=== PATIENT | male | born 1950 | race Caucasian/White ===

== ENCOUNTER → 2017-09-21 | Outpatient (CLI) | payer MEDICARE ==
[2017-09-21 16:25] LABS: ALT 34 U/L (21-72); AST 20 U/L (17-59); Albumin 4.3 g/dL (3.5-5.0); Alkaline Phosphatase 91 U/L (38-126); Anion Gap 12 mmol/L; Blood Urea Nitrogen 27 mg/dL (9-20); Calcium 9.9 mg/dL (8.4-10.2); Carbon Dioxide 28 mmol/L (22-30); Chloride 106 mmol/L (98-107); Cholesterol 146 mg/dL (<200); Glucose 84 mg/dL (74-99); HDL Cholesterol 46 mg/dL (40-60); LDL Cholesterol,Calculated 66 mg/dL (0-99); Potassium 4.8 mmol/L (3.5-5.1); Sodium 146 mmol/L (137-145); Total Bilirubin 0.8 mg/dL (0.2-1.3); Total Protein 6.8 g/dL (6.3-8.2); Triglycerides 171 mg/dL (<150)
== END | disposition home or self-care (01) ==
LOC: LABWHC1 15:37
PROVIDERS: ATTEND Internal Medicine Clinical Cardiac Electrophysiology
DX: E78.5 Hyperlipidemia, unspecified (principal); I48.91 Unspecified atrial fibrillation
CPT/HCPCS: 36415; 80053; 80061; 84443

== ENCOUNTER → 2017-11-16 | Outpatient (CLI) | payer MEDICARE ==
[2017-11-16 16:04] LABS: HGB 14.3 gm/dL (13.0-17.5); MCH 28.3 pg (25.0-35.0); MCHC 32.6 g/dL (31.0-37.0); MCV 86.6 fL (80.0-100.0); Mean Platelet Volume 9.2; Platelet Count 175 k/uL (150-450); RBC 5.08 m/uL (4.30-5.90); RDW 13.2 % (11.5-15.5)
[2017-11-16 16:37] LABS: Anion Gap 8 mmol/L; Blood Urea Nitrogen 24 mg/dL (9-20); Carbon Dioxide 27 mmol/L (22-30); Chloride 107 mmol/L (98-107); Potassium 4.6 mmol/L (3.5-5.1); Sodium 142 mmol/L (137-145)
== END | disposition home or self-care (01) ==
LOC: LABPAT 15:20
PROVIDERS: ATTEND Internal Medicine Interventional Cardiology
DX: Z01.812 Encounter for preprocedural laboratory examination (principal); I42.8 Other cardiomyopathies; I42.2 Other hypertrophic cardiomyopathy
CPT/HCPCS: 36415; 80051; 82565; 84520; 85027

== ENCOUNTER 2017-11-26 09:50 | Day surgery (SDC) | payer MEDICARE ==
[2017-11-22 12:16] VITALS: BMI 30.6
[~2017-11-26 09:50] MED LIST: ALPRAZolam 0.25 MG TAB PO PRN; ALPRAZolam 0.5 MG TAB PO PRN; ASPIRIN 325 MG TAB PO ONE; ATORVASTATIN 80 MG TAB PO ONE; NITROGLYCERIN SL TABS 0.4 MG TAB SUBLINGUAL PRN; SODIUM CHLORIDE 0.9% 1,000 ML in EMPTY BAG 1 BAG IV ONE
[2017-11-26] MEDS ORDERED: VERAPAMIL 2.5 MG/ML 2 ML AMP ONE (10:25)
[2017-11-26] MEDS ORDERED: MIDAZOLAM 2 MG/2 ML VIAL ONE (10:25)
[2017-11-26 10:33] VITALS: TEMP 98
[2017-11-26 10:52] LABS: INR 1.1 (<1.2); Prothrombin Time 10.9 sec (9.0-12.0)
[2017-11-26] MEDS ORDERED: MIDAZOLAM 2 MG/2 ML VIAL IV ONE (11:26)
[2017-11-26] MEDS ORDERED: LIDOCAINE 2% INJ 20 MG/ML SQ ONE (11:28)
[2017-11-26] MEDS: VERAPAMIL SYRINGE (5 MG/10 ML) INTRAARTER ONE ×2 (11:30→11:39)
[2017-11-26] MEDS ORDERED: HEPARIN SODIUM 1,000 UN/ML (10ML VL) IV ONE (11:31)
[2017-11-26] MEDS ORDERED: IOPAMIDOL-370 125ML BTL INJ ONE (11:40)
[2017-11-26] MEDS ORDERED: RX INFO: IV CONTRAST WAS GIVEN 1 EACH MISC MISCELLANE PRN (11:49)
[2017-11-26] MEDS ORDERED: SODIUM CHLORIDE 0.9% 1,000 ML IV SCH (12:00)
--- NOTE | 2017-11-26 12:24 | CC ---
CARDIAC CATHETERIZATION REPORT DATE OF SERVICE: 11/26/2017. PERFORMING PHYSICIAN: Sami Thapa MD, shipboard intelligence analyst. PROCEDURE PERFORMED: Selective right and left coronary angiogram. INDICATIONS: This is a pleasant 67-year-old gentleman who sees Dr. Lyon in the office as an outpatient with known history of chronic atrial fibrillation as well as aortic valve disease, was found to have severe cardiomyopathy recently on echocardiogram. His previous echo showed normal ejection fraction. Because of that, severe underlying coronary artery disease was a concern and the patient was scheduled to undergo a heart catheterization. APPROACH: Right radial artery. COMPLICATIONS: None. LEVEL OF SEDATION: Moderate with sedation length of 18 minutes. PROCEDURE DESCRIPTION: After obtaining an informed consent, the patient was brought to cardiac labour market economist. The right radial artery was cannulated using micropuncture technique and a micropuncture wire passed easily. Then I placed a 6-Greenlandic sheath in the right radial artery. After that, I did selective right and left coronary angiogram using JR4 and JL3.5 catheters. The procedure was completed without any complications. I did give the patient 2 mg of verapamil IA and 8000 units of heparin IV prior to the procedure. SELECTIVE CORONARY ANGIOGRAM: 1. RCA: Large caliber vessel and it is a dominant vessel. It is angiographically normal. It distally bifurcates into PDA and PLV branches, both are angiographically normal. 2. LEFT MAIN: Left main is angiographically normal. It bifurcates into the circumflex, ramus intermedius, and left anterior descending artery. 3. LEFT CIRCUMFLEX: The left circumflex is a large caliber vessel. It is a nondominant vessel. The left circumflex is angiographically normal and in the midportion gives rise into a large OM branch which seems to be angiographically normal. 4. RAMUS INTERMEDIUS: Large caliber vessel, bifurcates into 2 subbranches and appeared to be angiographically normal. 5. LAD: The proximal LAD is normal. It divides into a large diagonal branch which seems to be angiographically normal. The mid LAD and distal LAD are angiographically normal. CONCLUSION: Normal coronary angiogram. POSTPROCEDURE MANAGEMENT: 1. Medical treatment only. 2. Follow up with the patient. MMODL / IJN: [id number] /
[2017-11-26 12:33] VITALS: RESP 18
--- NOTE | 2017-11-26 12:45 | LTR ---
November 26, 2017 Re: Alexys Gutierrez Dear Dr. Briones: Mr. Alexys Gutierrez underwent a heart catheterization and that revealed normal coronaries. I want to thank you for allowing me to participate in his care and the patient is going to follow up with Dr. Lyon in the office as an outpatient. Sincerely, MD DEBBI Smith / LOU: [id number] /
[2017-11-26 14:08] VITALS: BP 110/64; PULSE 63
== END 2017-11-26 16:30 | disposition home or self-care (01) ==
LOC: CATHCVL 09:50
PROVIDERS: ATTEND Internal Medicine Interventional Cardiology
DX: I11.9 Hypertensive heart disease without heart failure (principal); I43 Cardiomyopathy in diseases classified elsewhere; I49.5 Sick sinus syndrome; I35.1 Nonrheumatic aortic (valve) insufficiency; I71.9 Aortic aneurysm of unspecified site, without rupture; E78.00 Pure hypercholesterolemia, unspecified; I48.2 Chronic atrial fibrillation; Z82.49 Family history of ischemic heart disease and other diseases of the circulatory system; Z79.01 Long term (current) use of anticoagulants; Z79.899 Other long term (current) drug therapy
CPT/HCPCS: 93458; 85610; C1894; C1769 ×2; J2001; J2250; J1644; Q9967

== ENCOUNTER 2018-06-01 06:32 | Day surgery (SDC) | payer MEDICARE ==
[2018-06-01] MEDS ORDERED: SODIUM CHLORIDE 0.9% 500 ML 500 ML IV ONE (07:45)
[2018-06-01 08:13] VITALS: TEMP 98.1
[2018-06-01] MEDS ORDERED: fentaNYL (PF) 50 MCG/ML 2 ML AMP ONE (08:16)
[2018-06-01] MEDS: BENZOCAINE SPRAY 1 CAN TOPICAL ONE ×2 (08:25→08:35)
[2018-06-01] MEDS ORDERED: fentaNYL (PF) 50 MCG/ML 2 ML AMP IVP ONE (08:35)
[2018-06-01] MEDS ORDERED: MIDAZOLAM 2 MG/2 ML VIAL IVP ONE ×2 (08:35→08:37)
[2018-06-01] MEDS ORDERED: WARFARIN 1 MG TAB PO SCH (09:00)
[2018-06-01] MEDS ORDERED: CARVEDILOL 3.125 MG TAB PO SCH (09:00)
[2018-06-01] MEDS ORDERED: SPIRONOLACTONE 25 MG TAB PO SCH (09:00)
[2018-06-01] MEDS ORDERED: SODIUM CHLORIDE 0.9% 1,000 ML IV SCH (09:00)
[2018-06-01] MEDS ORDERED: SIMVASTATIN 80 MG PO SCH (09:00)
[2018-06-01] MEDS ORDERED: LISINOPRIL 40 MG PO SCH (09:00)
[2018-06-01 10:04] VITALS: PULSE 56
[2018-06-01 10:07] VITALS: BP 117/70; RESP 14
--- NOTE | 2018-06-01 10:19 | ECHOT ---
TRANSESOPHAGEAL ECHOCARDIOGRAM INDICATION: Evaluation of aortic valve. PROCEDURE: After explaining the procedure to the patient, its risks and the complications, his blood pressure, heart rate, O2 saturation was monitored. The throat was sprayed with Cetacaine. He received 3 mg intravenous Versed and 50 mcg intravenous fentanyl. The probe was introduced into the esophagus without difficulty. Images were obtained. Following that, the probe was removed. FINDINGS: Left atrial size is dilated. Spontaneous contrast was noted. Right atrial size is dilated. Left ventricular systolic function severely impaired with estimated ejection fraction 35% with global hypokinesis. The aortic valve is a bicuspid valve, calcified with aortic valve area by planimetry between 1.7 and 1.9 centimeter square. The mitral valve appears to be normal. Tricuspid valve appears to be normal. The ascending aorta is dilated measuring up to 4.6 cm. No pericardial effusion was noted. Spontaneous contrast was noted in the left atrium. Contrast bubble study revealed no shunting across the interatrial septum. Doppler pulse wave and color Doppler were obtained and revealed a moderate aortic regurgitation with mild and moderate tricuspid regurgitation. The peak gradient across the aortic valve was 34 mmHg with a mean of 25 mmHg. The estimated right ventricular systolic pressure was 50 mmHg consistent with moderate pulmonary hypertension. There was no shunting by color Doppler study. CONCLUSION: 1. Biatrial enlargement with spontaneous contrast and normal appearance left atrial appendage. 2. Severely impaired left ventricular systolic function with global hypokinesis. 3. Bicuspid aortic valve with moderate aortic stenosis and regurgitation. 4. Dilated ascending aorta. 5. No shunting by color Doppler study. 6. Moderate tricuspid regurgitation with moderate pulmonary hypertension. 7. Mild mitral regurgitation. MMODL / IJN: [id number] /
== END 2018-06-01 10:25 | disposition home or self-care (01) ==
LOC: CATHCVL 06:32
PROVIDERS: ATTEND Internal Medicine Interventional Cardiology
DX: Q23.1 Congenital insufficiency of aortic valve (principal); I08.3 Combined rheumatic disorders of mitral, aortic and tricuspid valves; I27.20 Pulmonary hypertension, unspecified; I10 Essential (primary) hypertension; I48.1 Persistent atrial fibrillation; Z79.01 Long term (current) use of anticoagulants; Z82.49 Family history of ischemic heart disease and other diseases of the circulatory system; Z79.899 Other long term (current) drug therapy; Z88.8 Allergy status to other drugs, medicaments and biological substances; E78.49 Other hyperlipidemia
CPT/HCPCS: 93312; 93320; 93325; J2250; J3010

== ENCOUNTER → 2018-06-20 | Outpatient (CLI) | payer MEDICARE | END | disposition home or self-care (01) | LOC: LABWHC1 08:29 | PROVIDERS: ATTEND Nurse Practitioner Adult Health | DX: I71.2 Thoracic aortic aneurysm, without rupture (principal); I10 Essential (primary) hypertension | CPT/HCPCS: 36415; 82565; 84520 ==

== ENCOUNTER → 2018-06-21 | Outpatient (CLI) | payer MEDICARE ==
--- NOTE | 2018-06-21 08:59 | CT ---
EXAMINATION TYPE: CT angio thor/abd pel aorta DATE OF EXAM: 06/21/2018 COMPARISON: None HISTORY: Thoracic aortic aneurysm, without rupture CT DLP: 633.6 mGycm. Automated Exposure Control for Dose Reduction was Utilized. CONTRAST: CTA scan of the thorax, abdomen and pelvis is performed without oral but with IV Contrast, patient in jected with 100 mL of Isovue 370. Three-D reconstructed images are created on independent workstation and reviewed. FINDINGS: VASCULAR: Central pulmonary arteries are well-opacified. Main pulmonary artery measures 2.3 cm in rojas meter axial image 22. Adjacent ascending aorta measures up to 4.6 cm in diameter on same image. There is no aneurysm extension into the descending aorta. There is normal three-vessel origin from aortic arch. 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 Patent SINCERE is identified. There are patent bilateral single renal arteries. There is mild calcified plaque in the right renal artery and distal abdominal aorta. Mild c alcified plaque is seen in bilateral common iliac arteries. There is patent internal/external iliac a rteries bilaterally. There is patent common femoral arteries branching into superficial and deep femo ral arteries. No significant stenosis is present. No additional aneurysm is seen. No linear hypodensi ty or dissection is noted. LUNGS: There is linear scarring in both bases. No suspicious nodules or masses are present bilateral ly. There is no pleural effusion or pneumothorax seen bilaterally. The tracheobronchial tree is michel nt. MEDIASTINUM: There are no greater than 1 cm hilar or mediastinal lymph nodes. No pericardial effusi on is seen. Heart size is mildly enlarged. There is mild to moderate atrial dilatation. There is mode rate calcification at level of aortic valve. There is mild left atrial dilatation. OTHER: No additional significant abnormality is seen. LIVER/GB: Several scattered hypodense lesions throughout the liver approximately 10 in number are too small to characterize favoring simple thin-walled cyst as there is a 2.3 cm thin-walled cyst noted l eft hepatic dome axial image 48. PANCREAS: No significant abnormality is seen. SPLEEN: No significant abnormality is seen. ADRENALS: No significant abnormality is seen. KIDNEYS: There is 6 mm dependent calculus and bladder axial image 99. BOWEL: Few diverticula in the left and sigmoid colon are present. No CT evidence for acute diverticul itis. No suspicious bowel dilatation. GENITAL ORGANS: Prostate gland is markedly enlarged in size consistent with BPH with some peripheral zone calcifications. LYMPH NODES: No greater than 1cm abdominal or pelvic lymph nodes are appreciated. OSSEOUS STRUCTURES: Mild multilevel anterior spurring in the thoracic spine is present. There is mode rate narrowing of bilateral hip joints. OTHER: No significant additional abnormality is seen. IMPRESSION: 1. Thoracic aortic aneurysm measuring up to 4.6 cm in diameter. There is background mild cardiomegal y. 2. 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 3. Markedly enlarged prostate gland system with BPH. There is 6 mm intraluminal bladder calculus note d.
== END | disposition home or self-care (01) ==
LOC: RADCTMAIN 06:41
PROVIDERS: ATTEND Internal Medicine Clinical Cardiac Electrophysiology
DX: I71.2 Thoracic aortic aneurysm, without rupture (principal); N40.0 Benign prostatic hyperplasia without lower urinary tract symptoms; I51.7 Cardiomegaly; N21.0 Calculus in bladder; Z88.8 Allergy status to other drugs, medicaments and biological substances
CPT/HCPCS: 71275; 74174; Q9967

== ENCOUNTER → 2018-08-25 | Outpatient (CLI) | payer MEDICARE ==
[2018-08-25 12:12] LABS: HCT 47.5 % (39.0-53.0); HGB 15.4 gm/dL (13.0-17.5); MCH 29.2 pg (25.0-35.0); MCHC 32.5 g/dL (31.0-37.0); MCV 89.8 fL (80.0-100.0); Mean Platelet Volume 9.1; Platelet Count 184 k/uL (150-450); RBC 5.28 m/uL (4.30-5.90); RDW 14.1 % (11.5-15.5); WBC 9.1 k/uL (3.8-10.6)
[2018-08-25 12:47] LABS: Anion Gap 4 mmol/L; Blood Urea Nitrogen 21 mg/dL (9-20); Carbon Dioxide 30 mmol/L (22-30); Chloride 106 mmol/L (98-107); Glucose 81 mg/dL (74-99); Potassium 4.7 mmol/L (3.5-5.1); Sodium 140 mmol/L (137-145)
== END ==
LOC: LABPAT 10:50
PROVIDERS: ATTEND Internal Medicine Clinical Cardiac Electrophysiology
DX: Z01.812 Encounter for preprocedural laboratory examination (principal); I42.0 Dilated cardiomyopathy; I49.5 Sick sinus syndrome
CPT/HCPCS: 36415; 80051; 82565; 82947; 84520; 85027

== ENCOUNTER 2018-08-29 06:31 | Day surgery (SDC) | payer MEDICARE ==
[~2018-08-29 06:31] MED LIST changes: -ALPRAZolam 0.25 MG TAB PO PRN; -ALPRAZolam 0.5 MG TAB PO PRN; -ASPIRIN 325 MG TAB PO ONE; -ATORVASTATIN 80 MG TAB PO ONE; +LACTATED RINGERS 1,000 ML IV SCH; -NITROGLYCERIN SL TABS 0.4 MG TAB SUBLINGUAL PRN; +SODIUM CHLORIDE 0.9% 1,000 ML IV SCH; -SODIUM CHLORIDE 0.9% 1,000 ML in EMPTY BAG 1 BAG IV ONE; +ceFAZolin 1,000 MG in SODIUM CHLORIDE 0.9% IRRIGATIO 250 ML IRRIGATION ONE; +ceFAZolin IN SWFI 2 GM/20 ML SYRINGE IVP ONE
[2018-08-29] MEDS ORDERED: fentaNYL (PF) 50 MCG/ML 2 ML AMP ONE (07:44)
[2018-08-29] MEDS ORDERED: PROPOFOL 10 MG/ML 20 ML VIAL IV ONE (07:44)
[2018-08-29] MEDS ORDERED: MIDAZOLAM 2 MG/2 ML VIAL ONE (07:44)
[2018-08-29] MEDS ORDERED: IOPAMIDOL-250 50ML BTL IV ONE (08:02)
[2018-08-29] MEDS ORDERED: LIDOCAINE 1% INJ 10MG/ML (20 ML MDV) ONE ×2 (08:12)
[2018-08-29 08:27] LABS: INR 2.9 (<1.2)
[2018-08-29] MEDS ORDERED: LIDOCAINE 1% INJ 10MG/ML (20 ML MDV) SQ ONE (09:30)
[2018-08-29] MEDS ORDERED: SODIUM CHLORIDE 0.9% 500 ML 500 ML IV ONE (10:41)
[2018-08-29] MEDS ORDERED: ACETAMINOPHEN IV (For NPO) 1,000 MG in EMPTY BAG 1 BAG IVPB ONE ×2 (12:00→20:00)
[2018-08-29 12:20] VITALS: BMI 30.9
[2018-08-29] MEDS: ACETAMINOPHEN TAB 325 MG TAB PO PRN ×2 (12:35→18:04)
[2018-08-29] MEDS: CARVEDILOL 3.125 MG TAB PO SCH ×2 (12:35→17:16)
[2018-08-29] MEDS: ceFAZolin IN SWFI 2 GM/20 ML SYRINGE IVP SCH ×2 (14:46→20:09)
[2018-08-29] MEDS: HYDROcodone/APAP 5-325MG 1 EACH TAB PO PRN (19:10)
[2018-08-29] MEDS ORDERED: HYDROmorphone 0.5 MG/0.5 ML SYRINGE IVP PRN (19:14)
[2018-08-29] MEDS ORDERED: TEMAZEPAM 15 MG CAP PO PRN (19:15)
[2018-08-29] MEDS ORDERED: ATORVASTATIN 40 MG TAB PO SCH (21:00)
[2018-08-29] MEDS ORDERED: SPIRONOLACTONE 25 MG TAB PO SCH (21:00)
--- NOTE | 2018-08-29 22:59 | PCN ---
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 Despite being on appropriate medical treatment, his rates of very poorly controlled during the daytime. At rest and at night, his heart rates are extremely slow. He was brought for an ICD implant for chronic nonischemic cardiomyopathy, ejection fraction less than 35% with heart failure, but in view of his atrial fibrillation with RVR and poor rate control despite appropriate medical treatment for heart failure and atrial fibrillation, the biventricular pacing for/physiologic septal pacing was also considered prior to AV node modification, to avoid RV pacing post AV node ablation. Patient was brought to the EP lab in a fasting state. Written informed consent was obtained prior to the procedure. The left shoulder area was prepped and draped as per protocol. 1% lidocaine was used for local anesthesia. A IV cm incision was made parallel to the deltopectoral groove, about 1.5 cm medial to it. The incision was carried down to the level of the pectoralis muscle. A subfascial pocket was made. Hemostasis was assured. The left axillary vein was accessed at 2 separate points under fluoroscopy and via appropriately-sized introducer sheaths, 2 leads were positioned. [employer] ICD lead was model number [id number] 20Q, 58 cm in length and serial number [id number]. This was positioned in the RV apex. Current protocol was followed. R- waves 4.8 mV. Pacing impedance 640 ohms, pacing threshold 0.45 V at 0.5 milliseconds 10 V test negative. The 2nd lead implanted was a [employer] model ##[id number], 69 cm in length. Mapping of the His bundle was performed and this was screwed in the area of the His bundle with the HV interval of 146 milliseconds. After multiple screw ins, excellent threshold for nonselective His capture was obtained in the R-waves were 3.3 mV, pacing impedance 481 ohms, nonselective capture was noted down to 2.4 V at 1 millisecond and then subsequently ventricular capture. Both leads were secured to the underlying pectoralis fascia using 2 nonabsorbable sutures. Pocket was irrigated with antibiotic solution. Leads were connected to the generator. The generator was explanted. [employer] model number [id number] serial #[id number]. Atrial fort was plugged. The new generator was in the subfascial pocket. A [employer] model number [id number], 40 Q serial #[id number]. The atrial port was implanted. The generator was placed in the subfascial pocket. The wound was closed in 3 layers and dressed per protocol. The device was then programmed to 100 mid-LAD programming for primary prevention of sudden cardiac in the pacing in physiologic septal pacing at 60 ppm up to 130 ppm was performed with rate responsiveness. The patient tolerated the procedure well without any acute complications. PLAN: In 6 weeks the AV node modification will be performed if the leads remain stable. DEBBI / MARLEYN: [id number] /
[2018-08-30] MEDS: ceFAZolin IN SWFI 2 GM/20 ML SYRINGE IVP SCH ×2 (04:22→09:18)
[2018-08-30] MEDS: HYDROcodone/APAP 5-325MG 1 EACH TAB PO PRN (04:51)
--- NOTE | 2018-08-30 07:16 | XR ---
EXAMINATION TYPE: XR chest 2V DATE OF EXAM: 08/30/2018 COMPARISON: None HISTORY: 68-year-old male leak placement check TECHNIQUE: PA and lateral views FINDINGS: Left anterior chest wall AICD generator with right atrial and right ventricular leads. Heart borderli ne enlarged. Diffuse interstitial prominence. No consolidation or pleural effusion. IMPRESSION: Left anterior chest wall pacemaker generator with right atrial and right ventricular leads. Borderlin e heart size with interstitial prominence, possibly chronic in this patient. Correlate to exclude mil d pulmonary vascular congestion.
[2018-08-30 07:54] VITALS: RESP 16
[2018-08-30] MEDS ORDERED: LISINOPRIL 20 MG TAB PO SCH (09:00)
[2018-08-30] MEDS: CARVEDILOL 3.125 MG TAB PO SCH (09:18)
--- NOTE | 2018-08-30 12:07 | P.DS ---
Providers Attending physician: Germain Lyon Primary care physician: [facility] Hospital Course: Patient is doing well. He does complain of discomfort in the pectoral area near the ICD site implant. Minimal bruising no hematoma No actual chest discomfort no dizziness lightheadedness no palpitations On examination heart sounds are normal irregular Breath sounds are clear Pacemaker site is healing well Impression Nonischemic cardiomyopathy Aortic valve disease Dilated aortic root Atrial fibrillation with tachybradycardia syndrome, failure of drug therapy to control heart rates adequately Status post biventricular ICD implant with physiologic septal pacing Plan Continue and granulation, continue cardio myopathy in heart failure medications 6 weeks later we'll proceed with AV junction modification Aortic valve and aortic root on observation 6 monthly Plan - Discharge Summary Discharge Rx Participant: No New Discharge Prescriptions: Continue Spironolactone [Aldactone] 25 mg PO HS Carvedilol [Coreg] 3.125 mg PO TID Simvastatin [Zocor] 80 mg PO HS Lisinopril [Zestril] 40 mg PO DAILY Warfarin [Coumadin] 7.5 mg PO HS Discharge Medication List Carvedilol [Coreg] 3.125 mg PO TID 11/22/17 [History] Lisinopril [Zestril] 40 mg PO DAILY 11/22/17 [History] Simvastatin [Zocor] 80 mg PO HS 11/22/17 [History] Spironolactone [Aldactone] 25 mg PO HS 11/22/17 [History] Warfarin [Coumadin] 7.5 mg PO HS 05/31/18 [History] Follow up Appointment(s)/Referral(s): Germain Lyon MD [STAFF PHYSICIAN] - 09/08/18 10:00 am (Device clinic within week Follow-up with Dr. Lyon in 3 months) Patient Instructions/Handouts: Pacemaker (GEN) Activity/Diet/Wound Care/Special Instructions: PATIENT EDUCATION MATERIAL Instructions following a heart rhythm device implant. 1. Keep dressing DRY for 5 DAYS. You may cover the area with Saran or Cling Wrap, prior to a shower. 2. The dressing will be removed in the Device Clinic at [facility]. Absorbable sutures were used to close the wound. 3. Avoid raising the left arm above the shoulder level. 4 week restriction 4. Avoid arm movements, like backscratching, rubbing the head, or pulling on a cord. 4 weeks restriction 5. Gentle range of motion movements of the shoulder, closest to the incision should be performed to avoid a frozen shoulder. (Pendulum exercises of the shoulder) 6. The opposite arm may be used freely. 7. Avoid driving for 7 days. 8. Avoid activities such as golfing, swimming, weed whacking, lifting more than 10 pounds weight, bowling, gymnastics and weight training/lifting. (6 weeks restriction) 9. Activities such as wood chopping with an axe, pull-ups in the gymnasium, power lifting, arc-welding, being close to home induction cooktops will always be a problem. 10. Arm sling is only a reminder not to raise the arm above the head. You do not need to keep the arm completely immobilized. Your free to move the arm and use it and for normal activities. In case of any problems, please call [facility], [place], @ [phone], Attention: Device Clinic Device clinic follow-up in 5 days Follow-up with primary assistant store manager trainee in 3 months Discharge Disposition: HOME SELF-CARE
[2018-08-30] MEDS: ACETAMINOPHEN TAB 325 MG TAB PO PRN (12:31)
[2018-08-30 12:38] VITALS: BP 125/85; PULSE 75; TEMP 98.1
== END 2018-08-30 13:03 | disposition home or self-care (01) ==
LOC: CATHEP 06:31 → 1SOBS 11:13 → CATHEP 08-30 13:03
PROVIDERS: ATTEND Internal Medicine Clinical Cardiac Electrophysiology
DX: I42.0 Dilated cardiomyopathy (principal); I49.5 Sick sinus syndrome; I11.0 Hypertensive heart disease with heart failure; I50.9 Heart failure, unspecified; E78.5 Hyperlipidemia, unspecified; I48.1 Persistent atrial fibrillation; Q23.1 Congenital insufficiency of aortic valve; Z82.49 Family history of ischemic heart disease and other diseases of the circulatory system; I71.2 Thoracic aortic aneurysm, without rupture; Z79.01 Long term (current) use of anticoagulants; Z79.899 Other long term (current) drug therapy; Z88.8 Allergy status to other drugs, medicaments and biological substances
CPT/HCPCS: 33225; 33249; 85610; 71046; C1769 ×3; C1892; C1898; C1882; C1777; J2250; J0690 ×3; J2001; J3010; J2704; Q9966

== ENCOUNTER 2018-12-05 11:39 | Day surgery (SDC) | payer MEDICARE ==
[~2018-12-05 11:39] MED LIST changes: -SODIUM CHLORIDE 0.9% 1,000 ML IV SCH; -ceFAZolin 1,000 MG in SODIUM CHLORIDE 0.9% IRRIGATIO 250 ML IRRIGATION ONE; -ceFAZolin IN SWFI 2 GM/20 ML SYRINGE IVP ONE
[2018-12-05] MEDS: SODIUM CHLORIDE 0.9% 1,000 ML IV SCH (12:35)
[2018-12-05 12:39] LABS: Basophils # (A) 0.1 k/uL (0-0.2); Basophils % (A) 1 %; Eosinophils # (A) 0.2 k/uL (0-0.7); Eosinophils % (A) 4 %; HCT 43.7 % (39.0-53.0); HGB 14.6 gm/dL (13.0-17.5); Lymphocytes # (A) 1.6 k/uL (1.0-4.8); Lymphocytes % (A) 25 %; MCH 29.5 pg (25.0-35.0); MCHC 33.4 g/dL (31.0-37.0); MCV 88.2 fL (80.0-100.0); Mean Platelet Volume 8.6; Monocytes # (A) 0.5 k/uL (0-1.0); Monocytes % (A) 7 %; Neutrophils # (A) 4.1 k/uL (1.3-7.7); Neutrophils % (A) 62 %; Platelet Count 164 k/uL (150-450); RBC 4.96 m/uL (4.30-5.90); RDW 13.2 % (11.5-15.5); WBC 6.5 k/uL (3.8-10.6)
[2018-12-05 12:43] LABS: INR 1.3 (<1.2)
[2018-12-05 12:46] LABS: African American GFR (CKD) >90 (>60 ml/min/1.73 sqM); Anion Gap 6 mmol/L; Blood Urea Nitrogen 27 mg/dL (9-20); Calcium 9.6 mg/dL (8.4-10.2); Carbon Dioxide 25 mmol/L (22-30); Chloride 110 mmol/L (98-107); Glucose 92 mg/dL (74-99); Non-African American GFR(CKD) >90 (>60 ml/min/1.73 sqM); Sodium 141 mmol/L (137-145)
[2018-12-05 12:48] LABS: Potassium 5.4 mmol/L (3.5-5.1)
[2018-12-05] MEDS ORDERED: ePHEDrine SULFATE/0.9% NACL/PF 50 MG/5 ML SYRINGE IV ONE (14:01)
[2018-12-05] MEDS ORDERED: ATROPINE SULFATE 0.4 MG/ML 1 ML VIAL ONE (14:01)
[2018-12-05] MEDS ORDERED: PROPOFOL 10 MG/ML 20 ML VIAL IV ONE (14:01)
[2018-12-05] MEDS ORDERED: LIDOCAINE 1% INJ 10MG/ML (20 ML MDV) ONE ×2 (14:01→14:03)
[2018-12-05] MEDS ORDERED: MIDAZOLAM 2 MG/2 ML VIAL ONE (14:01)
[2018-12-05] MEDS ORDERED: fentaNYL (PF) 50 MCG/ML 2 ML AMP ONE (14:01)
[2018-12-05] MEDS ORDERED: LIDOCAINE 1% INJ 10MG/ML (20 ML MDV) SQ ONE (14:39)
[2018-12-05] MEDS ORDERED: HYDROcodone/APAP 5-325MG 1 EACH TAB PO PRN (15:34)
[2018-12-05] MEDS ORDERED: ACETAMINOPHEN IV (For NPO) 1,000 MG in EMPTY BAG 1 BAG IVPB ONE (15:34)
[2018-12-05] MEDS ORDERED: ACETAMINOPHEN TAB 325 MG TAB PO PRN (15:34)
--- NOTE | 2018-12-05 15:50 | P.HPCAR ---
History of Present Illness This is Dr. Lyon dictating a consult on this patient The patient was interviewed and examined by me IMPRESSION / ASSESSMENT: A. fib with RVR with inappropriate ICD shocks Status post biventricular ICD with physiologic septal pacing Congestive heart failure class II Hypertension Permanent Atrial fibrillation with a right bundle branch block pattern on ECG Nonischemic current myopathy serial dysfunction PLAN: AV node ablation/modification today HPI 68-year-old male patient with a history of atrial fibrillation with RVR with cardio myopathy. He has received inappropriate ICD shocks for A. fib with RVR He is on anticoagulation with Coumadin This is nonischemic cardio myopathy normal coronary arteries He is a dilated aortic root, aortic aneurysm He is status post biventricular ICD placement with physiologic septal pacing with His bundle pacing He denies any fever chills or rigors or expectoration no skin lesions or infections he is orthopnea PND and is able to lie flat comfortably he has no chest discomfort ROS: No fever chills or rigors, no cough, phlegm or expectoration, no nausea, vomiting or diarrhea, no hematuria, dysuria, no musculoskeletal complaints, no strokes or seizures, no skin lesions. EXAMINATION: Afebrile 97.9F pulse rate in the 70s blood pressure 139/84 mmHg Breath sounds are clear no rhonchi no crackles Heart sounds are irregular and rapid Abdomen soft nontender Extended is warm no edema No JVD Orthopnea REVIEW OF LABS, ECG & MEDICAL DATA hemoglobin 14.6 INR 1.3 potassium 5.4 BUN/creatinine normal He is a seizures medical by ventricle ICD with His bundle pacing Physical Exam Vitals: Vital Signs Temp Pulse Resp BP Pulse Ox 12/05/18 12:31 97.9 F 70 18 139/84 98 Intake and Output 12/05/18 12/05/18 12/05/18 06:59 14:59 22:59 Intake Total 20 Balance 20 Intake: IV 20 Past Medical History Past Medical History: Eye Disorder, Prostate Disorder Additional Past Medical History / Comment(s): See Dr Lyon's H&P. Lazy right eye. History of Any Multi-Drug Resistant Organisms: None Reported Past Surgical History: AICD, Heart Catheterization, Orthopedic Surgery Additional Past Surgical History / Comment(s): Broken right ankle surgery, WRIST RT X2 Past Anesthesia/Blood Transfusion Reactions: No Reported Reaction Type of Cardiac Device: AICD Device Placement Date:: 08/29/18 Smoking Status: Never smoker - Past Family History Brother(s) Family Medical History: Cancer Mother Brother(s) Family Medical History: Cancer Additional Family Medical History / Comment(s): Esophageal cancer. Mother Family Medical History: CVA/TIA Physical Examination Vital Signs Temp Pulse Resp BP Pulse Ox 12/05/18 12:31 97.9 F 70 18 139/84 98 Intake and Output 12/05/18 12/05/18 12/05/18 06:59 14:59 22:59 Intake Total 20 Balance 20 Intake: IV 20 Results 12/05/18 12:30 12/05/18 12:30 Coagulation 12/05/18 Range/Units 12:30 PT 13.0 H (9.0-12.0) sec CBC 12/05/18 Range/Units 12:30 WBC 6.5 (3.8-10.6) k/uL RBC 4.96 (4.30-5.90) m/uL Hgb 14.6 (13.0-17.5) gm/dL Hct 43.7 (39.0-53.0) % Plt Count 164 (150-450) k/uL Comprehensive Metabolic Panel 12/05/18 Range/Units 12:30 Sodium 141 (137-145) mmol/L Potassium 5.4 H (3.5-5.1) mmol/L Chloride 110 H (98-107) mmol/L Carbon Dioxide 25 (22-30) mmol/L BUN 27 H (9-20) mg/dL Creatinine 0.73 (0.66-1.25) mg/dL Glucose 92 (74-99) mg/dL Calcium 9.6 (8.4-10.2) mg/dL Current Medications Generic Name Dose Route Start Last Admin Trade Name Freq PRN Reason Stop Dose Admin Acetaminophen 650 mg 12/05/18 15:34 Tylenol Tab PO Q6HR PRN Mild Pain Hydrocodone Bitart/Acetaminophen 1 each 12/05/18 15:34 Cisco 5-325 PO Q4HR PRN Moderate Pain Atorvastatin Calcium 40 mg 12/05/18 21:00 Lipitor PO HS JIGAR Carvedilol 12.5 mg 12/05/18 17:30 Coreg PO BID-W/MEALS JIGAR Sodium Chloride 1,000 mls @ 20 mls/hr 12/05/18 07:23 12/05/18 12:35 Saline 0.9% IV 20 mls .Q24H JIGAR Administration Lisinopril 40 mg 12/06/18 09:00 Zestril PO QAM COUNT INCLUDES THE [facility] Sodium Chloride 12 ml 12/05/18 21:00 Saline Flush IV Q12HR COUNT INCLUDES THE [facility] Spironolactone 25 mg 12/05/18 21:00 Aldactone PO HS COUNT INCLUDES THE [facility] Warfarin Sodium 7.5 mg 12/05/18 18:00 Coumadin PO DAILY@1800 COUNT INCLUDES THE [facility] Intake and Output 12/05/18 12/05/18 12/05/18 06:59 14:59 22:59 Intake Total 20 Balance 20 Intake: IV 20 12/05/18 12:30 12/05/18 12:30
--- NOTE | 2018-12-05 15:52 | P.PRLE ---
RE: Alexys Gutierrez Dear Dr. Anali Espinosa underwent an ejection modification following biventricular ICD implantation. He is atrial fibrillation with RVR with inappropriate ICD shocks secondary to A. fib He underwent AV node modification successfully and hopefully he has no further issues with A. fib with RVR His medications including anticoagulation and been unchanged Thank you for entrusting me with the care of the patient Warm regards Sincerely Germain Lyon
--- NOTE | 2018-12-05 15:56 | P.PCN ---
Preoperative Diagnosis: Diagnosis Atrial fibrillation with RVR with inappropriate ICD shocks Current myopathy status post biventricular ICD Physiologic septal pacing Congestive heart failure class II Hypertension Underlying right bundle branch block pattern Procedure: Device interrogation with reprogramming prior to the procedure AV Node Ablation/modification. Device interrogation with reprogramming postprocedure Patient was brought to the EP lab in a fasting state. Written, informed consent was obtained prior to the procedure. Access was obtained, sheath placed in right femoral vein. 1. Preprocedure device interrogation and reprogramming Device interrogation with reprogramming performed. Rate responsiveness was turned off and the pacing rate was reprogrammed to a backup mode prior to ablation. Tachycardia detections turned off. Lead impedance is documented, sensing and pacing thresholds performed prior to the procedure Backup pacing, VVI 40 bpm 3. AV node ablation A Mapping/Ablation catheter was placed and right-sided AV node radiofrequency ablation/modification was performed. Complete heart block was achieved with occasional junctional escape rhythm above 40 bpm The patient was observed for about 20 minutes. His LV threshold/His bundle threshold was 0.75 V at 1 ms Once the rate was increased to 90 beats a minute his threshold increase to 3.5 V at 1 ms Impedances are stable 4. Device programming postprocedure Post ablation, device reprogramming was performed. Base Pacing rate was programmed to 90 bpm. Patient's device was reprogrammed and the interrogated. RF mode turned on Vascular sheaths were removed at the end of the procedure, hemostasis was assured, the patient was then transferred to recovery room/telemetry in stable condition. RV pacing threshold 0.7. 0.5 ms pacing impedance 440 ohms Conclusions: Successful ablation of the AV node. Plan: Pacing at 90 bpm for at least 3 weeks., His bundle pacing Basic programmed to His bundle pacing 5 V at 1 ms Telemetry monitoring for 24 hours. Continue anticoagulation. Patient tolerated the procedure well without any acute complications
[2018-12-05 16:43] VITALS: BMI 31.4
[2018-12-05] MEDS: CARVEDILOL 12.5 MG TAB PO SCH (17:51)
[2018-12-05] MEDS ORDERED: WARFARIN 7.5 MG TAB PO SCH (18:00)
[2018-12-05] MEDS ORDERED: ATORVASTATIN 40 MG TAB PO SCH (21:00)
[2018-12-05] MEDS ORDERED: SPIRONOLACTONE 25 MG TAB PO SCH (21:00)
[2018-12-06 07:03] LABS: INR 1.1 (<1.2); Prothrombin Time 11.9 sec (9.0-12.0)
[2018-12-06] MEDS: CARVEDILOL 12.5 MG TAB PO SCH (07:35)
[2018-12-06] MEDS: SODIUM CHLORIDE 0.9% 1,000 ML IV SCH (07:40)
[2018-12-06] MEDS ORDERED: LISINOPRIL 20 MG TAB PO SCH (09:00)
[2018-12-06 12:05] VITALS: BP 150/108; PULSE 101; RESP 18; TEMP 97.7
--- NOTE | 2018-12-06 12:54 | P.DS ---
Providers Attending physician: Germain Lyon Primary care physician: [facility] Course: Patient is a 68-year-old male with a past medical history of persistent atrial fibrillation, hypertension, nonischemic cardiomyopathy status post biventricular ICD, class II CHF who presented for an AV node ablation. Patient has atrial fibrillation with RVR and has been receiving inappropriate ICD shocks due to the the rapid ventricular rates, so he was scheduled for an AV node ablation avoid inappropriate ICD shocks. Yesterday he underwent successful AV node ablation/modification. His device was reprogrammed to VVIR 90-130 bpm. He has done well post procedure. He does have some postoperative urinary retention requiring straight Catheterization but he was able to void on his own this morning. Patient seen and examined sitting up in his chair. Dates he feels well. Denies any chest pain, palpitations, shortness of breath, orthopnea. He has been able to get up and walk around without any dizziness, lightheadedness or syncope. Device interrogation revealed normally functioning biventricular ICD, thresholds within normal limits WBC 6.5, hemoglobin 14.6, platelets 164, potassium 5.4, BUN 27, creatinine 0.73, PT 11.9, INR 1.1 Temperature 98.3F, pulse 90, respirations 14, blood pressure 123/82, oxygen saturation 97% on room air Patient seen and examined sitting up in his chair, no acute distress Lungs clear to auscultation bilaterally Heart is regular normal S1 and S2, no murmurs appreciated Groin minimally tender to palpation, no hematomas palpated Impression Persistent atrial fibrillation with inappropriate ICD shocks, status post AV node ablation, doing well postprocedure Nonischemic cardiomyopathy status post biventricular ICD placement with physiologic septal pacing Class II systolic CHF, stable Hypertension, blood pressure stable Plan Continue pacing at 90 bpm for 2-3 weeks, follow-up in the device clinic to reduce rate to 60 bpm Continue current medication regimen including anticoagulation with warfarin Continue current dose of warfarin, recheck INR in one week Low potassium diet follow up with Dr. Lyon/Milla Vu/Kristin Robb 8 weeks Plan - Discharge Summary Discharge Rx Participant: No New Discharge Prescriptions: Continue Spironolactone [Aldactone] 25 mg PO HS Carvedilol [Coreg] 12.5 mg PO BID Simvastatin [Zocor] 80 mg PO HS Lisinopril [Zestril] 40 mg PO QAM Warfarin [Coumadin] 7.5 mg PO HS Discharge Medication List Carvedilol [Coreg] 12.5 mg PO BID 11/22/17 [History] Lisinopril [Zestril] 40 mg PO QAM 11/22/17 [History] Simvastatin [Zocor] 80 mg PO HS 11/22/17 [History] Spironolactone [Aldactone] 25 mg PO HS 11/22/17 [History] Warfarin [Coumadin] 7.5 mg PO HS 05/31/18 [History] Follow up Appointment(s)/Referral(s): Germain Lyon MD [STAFF PHYSICIAN] - 2 Weeks (groin check-- December 12, 2018 at 11:15 am Device clinic follow-up in 2 weeks-- December 20, 2018 at 1:30 pm Follow-up with Dr. Lyon/Milla Vu/Kristin Robb in 8 weeks ) Activity/Diet/Wound Care/Special Instructions: Post EP study - Ablation instructions 1. Keep access sites dry for 2 days. 2. No heavy lifting or straining for 2 days. 3. Avoid bending the hips repeatedly for 2 days. 4. You may go up and down stairs slowly Call if the following is noted 1. Bleeding, increasing swelling or pain at the access sites. 2. Increasing chest discomfort, especially upon taking a deep breath. 3. Increasing shortness of breath, at rest or with exertion. 4. Undue cough / phlegm 5. Difficulty or pain while swallowing. 6. Pain or change in color in the extremities. 7. Fever, chills, rigors. 8. Increasing headache or neurologic symptoms. 9. Dizziness, fainting, palpitations
[2018-12-06] MEDS ORDERED: TAMSULOSIN 0.4 MG CAP.ER.24H PO STA (13:07)
== END 2018-12-06 16:04 | disposition home or self-care (01) ==
LOC: CATHEP 11:39 → 1SOBS 15:39 → CATHEP 12-06 16:04
PROVIDERS: ATTEND Internal Medicine Clinical Cardiac Electrophysiology
DX: I48.2 Chronic atrial fibrillation (principal); I11.0 Hypertensive heart disease with heart failure; I50.9 Heart failure, unspecified; I45.10 Unspecified right bundle-branch block; Z95.810 Presence of automatic (implantable) cardiac defibrillator; I42.8 Other cardiomyopathies; E78.5 Hyperlipidemia, unspecified; H53.001 Unspecified amblyopia, right eye; N42.9 Disorder of prostate, unspecified; Z80.0 Family history of malignant neoplasm of digestive organs; Z82.3 Family history of stroke; Z79.01 Long term (current) use of anticoagulants; Z79.899 Other long term (current) drug therapy
CPT/HCPCS: 93650; 80048; 85025; 85610 ×2; C1894; C1769 ×2; C1732; C1893; J2250; J0461; J2001; J3010; J2704

== ENCOUNTER 2018-12-06 22:07 | Emergency (ER) | payer MEDICARE ==
[2018-12-06 22:12] VITALS: PULSE 89; RESP 18
[2018-12-06 23:34] LABS: Appearance,Urine Clear (Clear); Bilirubin,Urine Negative (Negative); Blood,Urine Moderate (Negative); Color,Urine Light Yellow; Glucose,Urine (UA) Negative (Negative); Ketones,Urine Negative (Negative); Leukocyte Esterase,Urine Negative (Negative); Mucus,Urine Rare /hpf; Nitrite,Urine Negative (Negative); Protein,Urine Negative (Negative); RBC,Urine 24 /hpf (0-5); Specific Gravity,Urine 1.012 (1.001-1.035); Squamous Epithelial Cell,Urine <1 /hpf (0-4); Urobilinogen,Urine <2.0 mg/dL (<2.0); WBC,Urine 2 /hpf (0-5)
--- NOTE | 2018-12-06 23:38 | ED ---
General Adult HPI - General Chief complaint: Urogenital Stated complaint: unable to urinate Time Seen by Provider: 12/06/18 22:19 Source: patient, family Mode of arrival: ambulatory Limitations: no limitations - History of Present Illness Initial comments: 68-year-old male patient presents to the emergency department today for evaluation of urinary retention. Patient states he underwent cardiac ablation yesterday morning. Patient states he was kept for observation overnight. States he has not urinated since. States to did have intermittent straight catheterization twice while here in the hospital. He was started on Flomax. Patient states he was discharged just after noon and was unable to urinate on his own. Patient states he returned when he began to develop pressure and fullness in the suprapubic region. He denies any fever or chills. States he does have an enlarged prostate. Denies any history of urinary retention. He is not having any chest pain or shortness of breath. Patient denies any recent rash, nausea, vomiting, diarrhea, constipation, back pain, numbness, tingling, dizziness, weakness, headache, visual changes, or any other complaints. - Related Data Home Medications Medication Instructions Recorded Confirmed Carvedilol [Coreg] 12.5 mg PO BID 11/22/17 12/05/18 Lisinopril [Zestril] 40 mg PO QAM 11/22/17 12/05/18 Simvastatin [Zocor] 80 mg PO HS 11/22/17 12/05/18 Spironolactone [Aldactone] 25 mg PO HS 11/22/17 12/05/18 Warfarin [Coumadin] 7.5 mg PO HS 05/31/18 12/05/18 Allergies Allergy/AdvReac Type Severity Reaction Status Date / Time No Known Allergies Allergy Verified 12/06/18 22:11 Review of Systems ROS Statement: Those systems with pertinent positive or pertinent negative responses have been documented in the HPI. ROS Other: All systems not noted in ROS Statement are negative. Past Medical History Past Medical History: Eye Disorder, Prostate Disorder Additional Past Medical History / Comment(s): See Dr Lyon's H&P. Lazy right eye.. afib, bicupsid aortic valve, aortic anursym wathcing History of Any Multi-Drug Resistant Organisms: None Reported Past Surgical History: AICD, Heart Catheterization, Orthopedic Surgery, Pacemaker Additional Past Surgical History / Comment(s): Broken right ankle surgery,. ablasion. defibilator/pacemaker Past Anesthesia/Blood Transfusion Reactions: No Reported Reaction Type of Cardiac Device: AICD Device Placement Date:: 08/29/18 Past Psychological History: No Psychological Hx Reported Smoking Status: Never smoker Past Alcohol Use History: Rare Past Drug Use History: None Reported - Past Family History Brother(s) Family Medical History: Cancer Mother Brother(s) Family Medical History: Cancer Additional Family Medical History / Comment(s): Esophageal cancer. Mother Family Medical History: AFIB, CVA/TIA Father Additional Family Medical History / Comment(s): CABG General Exam Limitations: no limitations General appearance: alert, in no apparent distress, other (This is a well- developed, well-nourished adult male patient in no acute distress. Vital signs upon presentation are temperature 97.8F, pulse 89, respirations 18, blood pressure 170/96, pulse ox 97% on room air) Eye exam: Present: normal appearance, PERRL, EOMI. Absent: scleral icterus, conjunctival injection, periorbital swelling ENT exam: Present: normal exam, normal oropharynx, mucous membranes moist Respiratory exam: Present: normal lung sounds bilaterally. Absent: respiratory distress, wheezes, rales, rhonchi, stridor Cardiovascular Exam: Present: regular rate, normal rhythm, normal heart sounds. Absent: systolic murmur, diastolic murmur, rubs, gallop, clicks GI/Abdominal exam: Present: soft, tenderness (Suprapubic discomfort), normal bowel sounds. Absent: distended, guarding, rebound, rigid Neurological exam: Present: alert, oriented X3, CN II-XII intact Psychiatric exam: Present: normal affect, normal mood Skin exam: Present: warm, dry, intact, normal color. Absent: rash Course Vital Signs 12/06/18 12/07/18 22:08 00:04 Temperature 97.8 F 98 F Pulse Rate 89 Respiratory 18 18 Rate Blood Pressure 170/96 104/73 O2 Sat by Pulse 97 98 Oximetry Medical Decision Making - Medical Decision Making 68 year-old male patient presented to the emergency department today for evaluation of urinary retention after having a cardiac ablation with anesthesia. Physical examination did reveal some mild suprapubic tenderness. Pierce catheter was inserted, patient had 600-700 mL output. Urinalysis showed red blood cells no evidence for infection. Pierce catheter be left inserted. He is instructed to follow-up with urologist for further evaluation as soon as possible. Return parameters were discussed in detail. He verbalizes understanding and agrees with this plan. - Lab Data Lab Results 12/06/18 Range/Units 22:40 Urine Color Light Yellow Urine Appearance Clear (Clear) Urine pH 5.0 (5.0-8.0) Ur Specific [place] 1.012 (1.001-1.035) Urine Protein Negative (Negative) Urine Glucose (UA) Negative (Negative) Urine Ketones Negative (Negative) Urine Blood Moderate H (Negative) Urine Nitrite Negative (Negative) Urine Bilirubin Negative (Negative) Urine Urobilinogen <2.0 (<2.0) mg/dL Ur Leukocyte Esterase Negative (Negative) Urine RBC 24 H (0-5) /hpf Urine WBC 2 (0-5) /hpf Ur Squamous Epith Cells <1 (0-4) /hpf Urine Mucus Rare H (None) /hpf Disposition Clinical Impression: Urinary retention Disposition: HOME SELF-CARE Condition: Good Instructions (If sedation given, give patient instructions): Urinary Retention in Men (ED), Pierce Catheter Placement and Care (ED) Additional Instructions: Increase fluids. Follow up with urologist for further evaluation as soon as possible. Return to the emergency department for any new, worsening, or concerning symptoms. Is patient prescribed a controlled substance at d/c from ED?: No Referrals: Tyrone Briones MD [Primary Care Provider] - 1-2 days Dawood Perez MD [STAFF PHYSICIAN] - 1-2 days Time of Disposition: 23:38
[2018-12-07 00:06] VITALS: BP 104/73; TEMP 98
== END 2018-12-07 00:07 | disposition home or self-care (01) ==
LOC: EC 22:07
DX: N40.1 Benign prostatic hyperplasia with lower urinary tract symptoms (principal); R33.8 Other retention of urine; R31.9 Hematuria, unspecified; I48.91 Unspecified atrial fibrillation; Z79.01 Long term (current) use of anticoagulants; Z79.899 Other long term (current) drug therapy
CPT/HCPCS: 51702; 51798; 81001; 99284

== ENCOUNTER 2018-12-09 11:27 | Emergency (ER) | payer MEDICARE ==
[2018-12-09 11:33] VITALS: BP 163/121; PULSE 94; RESP 18; TEMP 97.7
[2018-12-09] MEDS ORDERED: LIDOCAINE URO-JET JELLY 2% 5 ML KIT URETHRAL STA (11:44)
--- NOTE | 2018-12-09 11:49 | ED ---
Male Urogenital HPI - General Chief complaint: Urogenital Stated complaint: male Time Seen by Provider: 12/09/18 11:34 Source: patient, RN notes reviewed, old records reviewed Mode of arrival: ambulatory Limitations: no limitations - History of Present Illness Initial comments: Patient is a 68-year-old male who presents emergency department today for evaluation for complaint of urinary retention. Patient reports that he removed his Pierce catheter at 5 AM today after instructed by urology. Patient reports that since that time he is not able to urinate and does feel some fullness and pressure within his penis and bladder. Patient states that she was told that he developed the urinary retention after anesthesia from a recent cardiac defibrill ator placement. Patient states that he called Dr. Douglass who told him to come to the ER Pierce catheter placement and then to follow-up with him this afternoon. Patient reports that he cut the Pierce catheter this morning and the catheter came out without significant difficulty. He does have a history of enlarged prostate at this time as well. - Related Data Home Medications Medication Instructions Recorded Confirmed Carvedilol [Coreg] 12.5 mg PO BID 11/22/17 12/05/18 Lisinopril [Zestril] 40 mg PO QAM 11/22/17 12/05/18 Simvastatin [Zocor] 80 mg PO HS 11/22/17 12/05/18 Spironolactone [Aldactone] 25 mg PO HS 11/22/17 12/05/18 Warfarin [Coumadin] 7.5 mg PO HS 05/31/18 12/05/18 Allergies Allergy/AdvReac Type Severity Reaction Status Date / Time No Known Allergies Allergy Verified 12/09/18 11:32 Review of Systems ROS Statement: Those systems with pertinent positive or pertinent negative responses have been documented in the HPI. ROS Other: All systems not noted in ROS Statement are negative. Past Medical History Past Medical History: Eye Disorder, Prostate Disorder Additional Past Medical History / Comment(s): Lazy right eye.. afib, bicupsid aortic valve, aortic anursym wathcing History of Any Multi-Drug Resistant Organisms: None Reported Past Surgical History: AICD, Heart Catheterization, Orthopedic Surgery, Pacema ker Additional Past Surgical History / Comment(s): Broken right ankle surgery,. ablasion. defibilator/pacemaker Past Anesthesia/Blood Transfusion Reactions: No Reported Reaction Type of Cardiac Device: AICD Device Placement Date:: 08/29/18 Past Psychological History: No Psychological Hx Reported Smoking Status: Never smoker Past Alcohol Use History: Rare Past Drug Use History: None Reported - Past Family History Brother(s) Family Medical History: Cancer Mother Brother(s) Family Medical History: Cancer Additional Family Medical History / Comment(s): Esophageal cancer. Mother Family Medical History: AFIB, CVA/TIA Father Additional Family Medical History / Comment(s): CABG General Exam - General Exam Comments Initial Comments: This is a 68-year-old male. Patient appears somewhat agitated. Uncomfortable. Pacing around room. Limitations: no limitations General appearance: alert, in no apparent distress Head exam: Present: atraumatic Eye exam: Present: normal appearance, PERRL, EOMI. Absent: scleral icterus, conjunctival injection, periorbital swelling ENT exam: Present: normal exam, mucous membranes moist Neck exam: Present: normal inspection. Absent: tenderness, meningismus, lymphadenopathy Respiratory exam: Present: normal lung sounds bilaterally. Absent: respiratory distress, wheezes, rales, rhonchi, stridor Cardiovascular Exam: Present: regular rate, normal rhythm, normal heart sounds. Absent: systolic murmur, diastolic murmur, rubs, gallop, clicks GI/Abdominal exam: Present: soft, normal bowel sounds. Absent: distended, tenderness, guarding, rebound, rigid exam: Present: normal inspection, urethral discharge ( is evidence of dried blood over her urethra.). Absent: testicular tenderness Extremities exam: Present: normal inspection, full ROM, normal capillary refill. Absent: tenderness, pedal edema, joint swelling, calf tenderness Neurological exam: Present: alert, oriented X3, CN II-XII intact Psychiatric exam: Present: normal affect, normal mood Skin exam: Present: warm, dry, intact, normal color. Absent: rash Course Vital Signs 12/09/18 11:29 Temperature 97.7 F Pulse Rate 94 Respiratory 18 Rate Blood Pressure 163/121 O2 Sat by Pulse 97 Oximetry Medical Decision Making - Medical Decision Making 68-year-old male presents for concern for urinary retention after Pierce catheter is moved earlier this morning. He states his appointment this afternoon with Dr. Sharma. The Patient is very uncomfortable and felt that he needed to urinate but was unable to. On bladder scan this 85 mL. Pierce catheter initiated proximally 500 mL was removed. On reevaluation is feeling much better. I discussed the Patient to prompt follow-up with urology for this removal. He does have appointment this afternoon. - Lab Data Lab Results 12/09/18 Range/Units 12:30 Urine Color Light Yellow Urine Appearance Clear (Clear) Urine pH 5.0 (5.0-8.0) Ur Specific [place] 1.007 (1.001-1.035) Urine Protein Negative (Negative) Urine Glucose (UA) Negative (Negative) Urine Ketones Negative (Negative) Urine Blood Moderate H (Negative) Urine Nitrite Negative (Negative) Urine Bilirubin Negative (Negative) Urine Urobilinogen <2.0 (<2.0) mg/dL Ur Leukocyte Esterase Negative (Negative) Urine RBC 67 H (0-5) /hpf Urine WBC 2 (0-5) /hpf Urine Bacteria Rare H (None) /hpf Urine Mucus Rare H (None) /hpf Disposition Clinical Impression: Urinary retention Disposition: HOME SELF-CARE Condition: Good Instructions (If sedation given, give patient instructions): Urinary Retention in Men (ED) Additional Instructions: Go to Dr. Perez his office for follow-up. Return to emergency department if any alarming signs or symptoms occur. Is patient prescribed a controlled substance at d/c from ED?: No Referrals: Tyrone Briones MD [Primary Care Provider] - 1-2 days Time of Disposition: 12:23
[2018-12-09 12:48] LABS: Appearance,Urine Clear (Clear); Bacteria,Urine Rare /hpf; Bilirubin,Urine Negative (Negative); Blood,Urine Moderate (Negative); Color,Urine Light Yellow; Glucose,Urine (UA) Negative (Negative); Ketones,Urine Negative (Negative); Leukocyte Esterase,Urine Negative (Negative); Mucus,Urine Rare /hpf; Nitrite,Urine Negative (Negative); Protein,Urine Negative (Negative); RBC,Urine 67 /hpf (0-5); Specific Gravity,Urine 1.007 (1.001-1.035); Urobilinogen,Urine <2.0 mg/dL (<2.0); WBC,Urine 2 /hpf (0-5)
== END 2018-12-09 12:44 | disposition home or self-care (01) ==
LOC: EC 11:27
DX: R33.9 Retention of urine, unspecified (principal); I48.91 Unspecified atrial fibrillation; Z79.01 Long term (current) use of anticoagulants; Z79.02 Long term (current) use of antithrombotics/antiplatelets; Z79.899 Other long term (current) drug therapy; Z95.0 Presence of cardiac pacemaker; Z95.5 Presence of coronary angioplasty implant and graft
CPT/HCPCS: 51702; 51798; 81001; 87086; 99284

== ENCOUNTER → 2019-06-15 | Outpatient (CLI) | payer MEDICARE ==
[2019-06-15 15:06] LABS: HCT 44.1 % (39.0-53.0); HGB 14.8 gm/dL (13.0-17.5); MCH 29.6 pg (25.0-35.0); MCHC 33.6 g/dL (31.0-37.0); MCV 88.1 fL (80.0-100.0); Mean Platelet Volume 9.4; Platelet Count 188 k/uL (150-450); RBC 5.01 m/uL (4.30-5.90); RDW 13.1 % (11.5-15.5); WBC 8.2 k/uL (3.8-10.6)
[2019-06-15 15:13] LABS: Potassium 4.2 mmol/L (3.5-5.1)
== END | disposition home or self-care (01) ==
LOC: LABPAT 14:31
PROVIDERS: ATTEND Internal Medicine Interventional Cardiology
DX: Z01.812 Encounter for preprocedural laboratory examination (principal); I35.1 Nonrheumatic aortic (valve) insufficiency
CPT/HCPCS: 36415; 80051; 82565; 84520; 85027

== ENCOUNTER 2019-06-16 07:25 | Day surgery (SDC) | payer MEDICARE ==
[2019-06-14 13:37] VITALS: BMI 31.6
[~2019-06-16 07:25] MED LIST changes: +ALPRAZolam 0.25 MG TAB PO PRN; +ALPRAZolam 0.5 MG TAB PO PRN; +ASPIRIN 325 MG TAB PO STA; +ATORVASTATIN 80 MG TAB PO STA; -LACTATED RINGERS 1,000 ML IV SCH; +NITROGLYCERIN SL TABS 0.4 MG TAB SUBLINGUAL PRN; +SODIUM CHLORIDE 0.9% 1,000 ML in EMPTY BAG 1 BAG IV ONE
[2019-06-16] MEDS ORDERED: ASPIRIN 81 MG ONE (07:57)
[2019-06-16] MEDS ORDERED: SODIUM CHLORIDE 0.9% 1,000 ML IV ONE (08:12)
[2019-06-16 08:25] VITALS: RESP 16; TEMP 98.3
[2019-06-16] MEDS ORDERED: LIDOCAINE 1% INJ 10MG/ML (20 ML MDV) ONE ×2 (08:39→09:05)
[2019-06-16] MEDS ORDERED: VERAPAMIL 2.5 MG/ML 2 ML AMP ONE (08:43)
[2019-06-16] MEDS ORDERED: HEPARIN SODIUM 1,000 UN/ML (10ML VL) ONE (08:43)
[2019-06-16] MEDS ORDERED: MIDAZOLAM 2 MG/2 ML VIAL IVP ONE (08:58)
[2019-06-16] MEDS ORDERED: LIDOCAINE 1% INJ 10MG/ML (20 ML MDV) SQ ONE ×2 (09:04→09:07)
[2019-06-16] MEDS ORDERED: HYDROmorphone 1 MG/ML 1 ML SYRINGE ONE (09:06)
[2019-06-16] MEDS ORDERED: HYDROmorphone 1 MG/ML 1 ML SYRINGE IVP ONE (09:08)
[2019-06-16] MEDS ORDERED: RX INFO: IV CONTRAST WAS GIVEN 1 EACH MISC MISCELLANE PRN (09:31)
[2019-06-16] MEDS ORDERED: IOPAMIDOL-370 125ML BTL INJ ONE (09:32)
[2019-06-16] MEDS ORDERED: SODIUM CHLORIDE 0.9% 1,000 ML IV SCH (09:45)
--- NOTE | 2019-06-16 09:57 | CC ---
CARDIAC CATHETERIZATION REPORT DATE OF SERVICE: June 16, 2019. PERFORMING PHYSICIAN: Sami Thapa MD. PROCEDURE PERFORMED: 1. Selective right and left coronary angiogram. 2. Left heart catheterization. INDICATION: This is a 69-year-old gentleman who sees Dr. Lyon in the office as an outpatient who was diagnosed recently with aortic aneurysm as well as aortic stenosis and he was going to undergo surgery. The heart catheterization is to assess his coronary anatomy. APPROACH: Right common femoral artery. COMPLICATION: None. LEVEL OF SEDATION: Moderate with sedation length of 27 minutes. PROCEDURE DESCRIPTION: After obtaining an informed consent, the patient was brought to the cardiac manager cath lab. The right common femoral artery was cannulated using micropuncture technique, the micropuncture wire passed easily then I placed a 6-Tunisian sheath in the right common femoral artery. I did also access the right common femoral vein and I placed an 8-Tunisian sheath. I did attempt doing a right heart catheterization, but the balloon of the catheter was pulling on the RV lead and because of that I decided to abort the right heart catheterization. Selective right and left coronary angiogram performed with JR4 and JL4.5 catheters. Left heart catheterization was performed using 6-Tunisian pigtail catheter. The procedure was completed without any complication. SELECTIVE CORONARY ANGIOGRAM: 1. The right coronary artery is a large caliber vessel and it is a dominant vessel. It is angiographically normal. It distally bifurcates into PDA and PLV branches both appeared to be angiographically normal. 2. The left main appeared to be angiographically normal. It bifurcates into LCX, ramus intermedius, and left anterior descending artery. 3. The left circumflex is a large caliber vessel. It is a nondominant vessel. The proximal circumflex appeared to be normal and gives rise into a large OM branch which seems to be normal. The mid circumflex is normal and gives rise into a second OM branch which is small caliber vessel, seems to be angiographically normal. 4. Ramus intermedius: The patient does have 2 ramus intermedius and appear to be angiographically normal. 5. The LAD: The proximal LAD appeared to be normal. It gives rise into a large diagonal branch which seems to be angiographically normal. The mid LAD has a focal lesion appeared to be in the range of 70% to 80%. The LAD distally appeared to be angiographically normal. HEMODYNAMICS: The LVEDP was 6 mmHg with peak to peak gradient was about 30 mmHg. CONCLUSION: 1. Severe focal lesion involving the mid left anterior descending artery. 2. Normal left ventricular end-diastolic pressure. 3. Peak to peak gradient across aortic valve was 30 mmHg. [id number] / IJN: [id number] /
[2019-06-16 16:52] VITALS: BP 115/67; PULSE 63
== END 2019-06-16 15:00 | disposition home or self-care (01) ==
LOC: CATHCVL 07:25
PROVIDERS: ATTEND Internal Medicine Interventional Cardiology
DX: I25.9 Chronic ischemic heart disease, unspecified (principal); I35.0 Nonrheumatic aortic (valve) stenosis; I48.21 Permanent atrial fibrillation; I11.9 Hypertensive heart disease without heart failure; I43 Cardiomyopathy in diseases classified elsewhere; I71.9 Aortic aneurysm of unspecified site, without rupture; E78.00 Pure hypercholesterolemia, unspecified; R33.8 Other retention of urine; I45.10 Unspecified right bundle-branch block; E78.5 Hyperlipidemia, unspecified; I49.5 Sick sinus syndrome; Z98.890 Other specified postprocedural states; Z95.810 Presence of automatic (implantable) cardiac defibrillator; Z96.0 Presence of urogenital implants; Z79.899 Other long term (current) drug therapy; Z79.01 Long term (current) use of anticoagulants; Z88.8 Allergy status to other drugs, medicaments and biological substances; Z82.49 Family history of ischemic heart disease and other diseases of the circulatory system
CPT/HCPCS: 93458; C1760; C1894 ×2; C1769 ×3; J2250; J2001; J1170; Q9967

== ENCOUNTER → 2019-11-27 | Outpatient (CLI) | payer MEDICARE | END | disposition home or self-care (01) | LOC: LABWHC1 09:39 | PROVIDERS: ATTEND Nurse Practitioner Adult Health | DX: U07.1 COVID-19 (principal) ==

== ENCOUNTER → 2020-01-01 | Outpatient (CLI) | payer MEDICARE ==
[2020-01-01 11:15] LABS: HCT 39.2 % (39.0-53.0); HGB 12.2 gm/dL (13.0-17.5); Hypochromasia Marked; MCH 27.4 pg (25.0-35.0); MCV 88.3 fL (80.0-100.0); Mean Platelet Volume 8.1; Platelet Count 304 k/uL (150-450); Poikilocytosis Slight; RBC 4.44 m/uL (4.30-5.90); RDW 13.5 % (11.5-15.5); WBC 7.6 k/uL (3.8-10.6)
[2020-01-01 11:23] LABS: African American GFR (CKD) >90 (>60 ml/min/1.73 sqM); Blood Urea Nitrogen 20 mg/dL (9-20); Magnesium 2.1 mg/dL (1.6-2.3); Non-African American GFR(CKD) >90 (>60 ml/min/1.73 sqM)
== END | disposition home or self-care (01) ==
LOC: LABWHC1 09:49
PROVIDERS: ATTEND Internal Medicine Clinical Cardiac Electrophysiology
DX: Z01.818 Encounter for other preprocedural examination (principal); Z95.810 Presence of automatic (implantable) cardiac defibrillator
CPT/HCPCS: 36415; 82565; 83735; 84520; 85027

== ENCOUNTER → 2020-01-04 | Day surgery (SDC) | payer MEDICARE ==
[2020-01-03 14:37] VITALS: BMI 29.9
[~2020-01-04] MED LIST changes: -ALPRAZolam 0.25 MG TAB PO PRN; -ALPRAZolam 0.5 MG TAB PO PRN; -ASPIRIN 325 MG TAB PO STA; -ATORVASTATIN 80 MG TAB PO STA; +IOPAMIDOL-250 50ML BTL IV ONE; -NITROGLYCERIN SL TABS 0.4 MG TAB SUBLINGUAL PRN; +SODIUM CHLORIDE 0.9% 1,000 ML IV SCH; -SODIUM CHLORIDE 0.9% 1,000 ML in EMPTY BAG 1 BAG IV ONE
[2020-01-04 06:28] VITALS: PULSE 60; RESP 18; TEMP 98.4
[2020-01-04 06:55] LABS: Prothrombin Time 19.1 sec (9.0-12.0)
--- NOTE | 2020-01-04 07:57 | P.PCN ---
Preoperative Diagnosis: Diagnosis His bundle lead dislodgment intraoperatively during aortic valve and aortic root replacement intraoperatively Nonischemic cardio myopathy, congestive heart failure class II Permanent atrial fibrillation Aortic valve regurgitation and aortic root enlargement status post replacement/repair Cinefluoroscopy of the leads Cinefluoroscopy of the leads was performed The His bundle lead is clearly discharged from with septal position. The scope tip is in the atrium, RA The ICD lead is probably in the position similar to before although this will have to be determined intraoperatively to Left upper extremity venogram was performed 15 mL IV dye injected The left axillary subclavian and innominate veins were patent Plan Extraction of the intraoperatively dislodged His bundle lead Implantation of a new LV lead for biventricular pacing
[2020-01-04 08:12] VITALS: BP 133/67
== END ==
LOC: CATHEP 06:03
PROVIDERS: ATTEND Internal Medicine Clinical Cardiac Electrophysiology
DX: T82.128A Displacement of other cardiac electronic device, initial encounter (principal); I11.0 Hypertensive heart disease with heart failure; I50.9 Heart failure, unspecified; I42.9 Cardiomyopathy, unspecified; I48.21 Permanent atrial fibrillation; Q23.1 Congenital insufficiency of aortic valve; I25.10 Atherosclerotic heart disease of native coronary artery without angina pectoris; E78.5 Hyperlipidemia, unspecified; I49.5 Sick sinus syndrome; I71.2 Thoracic aortic aneurysm, without rupture; Z95.2 Presence of prosthetic heart valve; Z79.01 Long term (current) use of anticoagulants; Z79.899 Other long term (current) drug therapy; Z98.890 Other specified postprocedural states; Z88.8 Allergy status to other drugs, medicaments and biological substances; Z82.49 Family history of ischemic heart disease and other diseases of the circulatory system
CPT/HCPCS: 36005; 75820; 76000; 85610; Q9966

== ENCOUNTER → 2020-01-22 | Outpatient (CLI) | payer MEDICARE ==
[2020-01-22 12:39] LABS: HCT 36.7 % (39.0-53.0); HGB 11.6 gm/dL (13.0-17.5); Hypochromasia Slight; MCH 26.8 pg (25.0-35.0); MCHC 31.7 g/dL (31.0-37.0); MCV 84.5 fL (80.0-100.0); Mean Platelet Volume 8.7; Platelet Count 177 k/uL (150-450); RBC 4.34 m/uL (4.30-5.90); RDW 13.6 % (11.5-15.5)
[2020-01-22 12:52] LABS: African American GFR (CKD) >90 (>60 ml/min/1.73 sqM); Anion Gap 4 mmol/L; Blood Urea Nitrogen 21 mg/dL (9-20); Carbon Dioxide 29 mmol/L (22-30); Chloride 108 mmol/L (98-107); Non-African American GFR(CKD) >90 (>60 ml/min/1.73 sqM); Potassium 4.2 mmol/L (3.5-5.1); Sodium 141 mmol/L (137-145)
== END | disposition home or self-care (01) ==
LOC: LABPAT 10:58
PROVIDERS: ATTEND Internal Medicine Clinical Cardiac Electrophysiology
DX: Z01.818 Encounter for other preprocedural examination (principal); I25.10 Atherosclerotic heart disease of native coronary artery without angina pectoris
CPT/HCPCS: 36415; 80051; 82565; 84443; 84520; 85027

== ENCOUNTER 2020-02-05 06:09 | Day surgery (SDC) | payer MEDICARE ==
[2020-02-02 13:25] VITALS: BMI 29.9
[2020-02-05] MEDS ORDERED: SODIUM CHLORIDE 0.9% 1,000 ML IV SCH (06:11)
[2020-02-05] MEDS ORDERED: LACTATED RINGERS 1,000 ML IV SCH (06:11)
[2020-02-05] MEDS ORDERED: SODIUM CHLORIDE 0.9% 1,000 ML IV ONE (06:30)
[2020-02-05 06:45] VITALS: PULSE 60; RESP 16; TEMP 98.4
[2020-02-05 06:46] LABS: Basophils # (A) 0.1 k/uL (0-0.2); Basophils % (A) 1 %; Eosinophils # (A) 0.4 k/uL (0-0.7); Eosinophils % (A) 6 %; HCT 42.4 % (39.0-53.0); HGB 13.8 gm/dL (13.0-17.5); Hypochromasia Slight; Lymphocytes # (A) 1.4 k/uL (1.0-4.8); Lymphocytes % (A) 22 %; MCH 27.7 pg (25.0-35.0); MCHC 32.5 g/dL (31.0-37.0); MCV 85.1 fL (80.0-100.0); Monocytes # (A) 0.6 k/uL (0-1.0); Monocytes % (A) 9 %; Neutrophils # (A) 3.9 k/uL (1.3-7.7); Neutrophils % (A) 60 %; Platelet Count 206 k/uL (150-450); RBC 4.99 m/uL (4.30-5.90); RDW 13.9 % (11.5-15.5); WBC 6.5 k/uL (3.8-10.6)
[2020-02-05 06:51] LABS: INR 1.6 (<1.2); Prothrombin Time 16.1 sec (9.0-12.0)
[2020-02-05] MEDS ORDERED: ceFAZolin 1,000 MG in SODIUM CHLORIDE 0.9% IRRIGATIO 250 ML IRRIGATION ONE (07:00)
[2020-02-05] MEDS ORDERED: HYDROmorphone (PF) 1 MG/ML ONE (07:22)
[2020-02-05] MEDS ORDERED: MIDAZOLAM 2 MG/2 ML VIAL ONE (07:22)
[2020-02-05] MEDS ORDERED: fentaNYL (PF) 50 MCG/ML 2 ML AMP ONE (07:22)
[2020-02-05] MEDS: IOPAMIDOL-370 50ML BTL INJ ONE ×2 (07:55→09:30)
[2020-02-05] MEDS ORDERED: LIDOCAINE 1% INJ 10MG/ML (20 ML MDV) SQ ONE ×3 (08:23→08:53)
[2020-02-05] MEDS ORDERED: ACETAMINOPHEN IV (For NPO) 1,000 MG in EMPTY BAG 1 BAG IVPB ONE (10:40)
[2020-02-05] MEDS ORDERED: ACETAMINOPHEN TAB 325 MG TAB PO PRN (10:40)
[2020-02-05] MEDS ORDERED: HYDROcodone/APAP 5-325MG 1 EACH TAB PO PRN (10:40)
[2020-02-05] MEDS ORDERED: NON FORMULARY DRUG (Potassium Gluconate [Potassium Gluconate] 99 MG Tablet.Er) PO PRN (10:42)
[2020-02-05] MEDS ORDERED: FUROSEMIDE 20 MG TAB PO PRN (10:42)
--- NOTE | 2020-02-05 11:15 | P.EPPROC ---
- EP Procedure Note Electrophysiology Procedure Note: Diagnosis Dislodgment of the His bundle lead intraoperatively during valve surgery/biventricular ICD implanted greater than 1 year back Complete heart block bradycardia status post AV node ablation and management of A. kendall with RVR Permanent atrial fibrillation Severe nonischemic cardio myopathy CHF class II systolic Left upper Extremity venogram 15 mL of IV dye injected in the left upper extremity. Patent left subclavian left axillary and innominate system Plan Proceed with extraction of the His bundle lead Implantation of the new LV lead Explantation of chronic generator that incorporated bipolar lead Implantation of a new generator incorporating a quadripolar lead The above-mentioned procedures were performed to implantation of LV lead to prolonged time on account of scar tissue within the pocket. The leads were carefully dissected away, the chronic generator was removed from the pocket. Backup pacing was performed through the ICD lead, V00 16 bpm A suture was placed, nonabsorbable, around the entry site of the His bundle lead to prevent backbleeding The His bundle lead was extracted with counterclockwise rotation and gradual mechanical traction and the entire lead was then removed and inspected the end. The suture was placed and there was no further backbleeding When access was obtained, the sheath would not pass through over the wire Progressive be larger dilators were used to dilate the vein. Maximum a 10- Slovak dilator A long wire was placed, advantaged wire A 9-1/2-Slovak sheath was then placed Access to the coronary sinus was difficult on account of the tortuosity and angulation of the os. The and the os there was a further angulation in the C orey sinus. Once the Brendan sinus catheter was placed just be on the os, the CS sheath was placed in the office the coronary sinus catheter was advanced a little further. A lyric wire was placed, but did not require. Since placed in the distal coronary sinus. However it had difficulty negotiating its way. A venogram was performed in the Brendan sinus. Following the path of the coronary sinus vein this wire was placed in the distal coronary sinus. Over this wire and in the sheath was placed and advanced into the distal coronary sinus. This gave stability to the outer sheath which was then gradually placed in the distal coronary sinus Left upper extremity venogram was performed. A large but very tortuous lateral vein was noted especially at its proximal portion close to the Brendan sinus The LV lead was then manipulated into the os of the lateral vein. An angioplasty wire was placed through this into the distal lateral vein Multiple tributaries were tested and finally the most stable position was selected [employer] LV lead implanted in the lateral vein, model #77865 him a 86 cm in length and serial number [id number] Old generator was explanted, [employer] His bundle lead was extracted New biventricular ICD generator with a quadripolar LV lead connection Model number [id number], serial number [id number] Excellent thresholds from poles 2, 3 and 4 Output pacing negative for phrenic nerve stimulation Pacing impedance 310 ohms. Threshold less than 0.8 V at 0.5 ms for all stools RV lead was interrogated pacing impedance 310 ohms. Threshold 0.75 V at 0.5 ms Leads were secured device was implanted wound was closed in 3 layers. Pressure dressing applied Result Successful implantation of LV lead in the lateral vein for biventricular pacing in this gentleman with complete heart block after AV node ablation for A. fib with RVR, permanent A. 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
--- NOTE | 2020-02-05 12:31 | XR ---
EXAMINATION TYPE: XR chest 1V portable DATE OF EXAM: 02/05/2020 Comparison: 08/30/2018 Clinical History: 69-year-old male Lead placement check Findings: Left anterior chest wall AICD generator with right ventricular and coronary sinus leads. Right atrial lead not as well seen currently. Median sternotomy wires are present with prosthetic aortic valve. H eart upper limits of normal in size. Some blunting of the left costophrenic angle. Otherwise, the jess gs and pleural spaces are clear. Impression: 1. Left-sided pacemaker generator with right ventricular ICD lead in the coronary sinus lead. The rig ht atrial lead is not well seen on the present exam. 2. Possible trace left effusion.
[2020-02-05] MEDS ORDERED: TAMSULOSIN 0.4 MG CAP.ER.24H PO SCH (13:45)
[2020-02-05 15:32] VITALS: BP 121/72
[2020-02-05] MEDS ORDERED: carvediloL 3.125 MG TAB PO SCH (21:00)
[2020-02-05] MEDS ORDERED: WARFARIN 1 MG TAB PO SCH (21:00)
[2020-02-05] MEDS ORDERED: ATORVASTATIN 40 MG TAB PO SCH (21:00)
[2020-02-06] MEDS ORDERED: ASPIRIN 81 MG PO SCH (09:00)
[2020-02-06] MEDS ORDERED: FINASTERIDE 5 MG TAB PO SCH (09:00)
== END 2020-02-05 14:48 | disposition home or self-care (01) ==
LOC: CATHEP 06:09
PROVIDERS: ATTEND Internal Medicine Clinical Cardiac Electrophysiology
DX: T82.120A Displacement of cardiac electrode, initial encounter (principal); Y65.8 Other specified misadventures during surgical and medical care; Y92.234 Operating room of hospital as the place of occurrence of the external cause; Z45.02 Encounter for adjustment and management of automatic implantable cardiac defibrillator; I77.1 Stricture of artery; I44.2 Atrioventricular block, complete; R00.1 Bradycardia, unspecified; I48.21 Permanent atrial fibrillation; I42.8 Other cardiomyopathies; I25.10 Atherosclerotic heart disease of native coronary artery without angina pectoris; I11.0 Hypertensive heart disease with heart failure; I50.20 Unspecified systolic (congestive) heart failure; I71.2 Thoracic aortic aneurysm, without rupture; Q23.1 Congenital insufficiency of aortic valve; E78.5 Hyperlipidemia, unspecified; Z82.49 Family history of ischemic heart disease and other diseases of the circulatory system; Z79.01 Long term (current) use of anticoagulants; Z79.899 Other long term (current) drug therapy; Z88.8 Allergy status to other drugs, medicaments and biological substances
CPT/HCPCS: 33225; 33234; 33264; 85025; 85610; 71045; C1769 ×4; C1892 ×3; C1730; C1900; C1882; J2250; J0690 ×2; J2001; J3010; J1170; Q9967